=== PATIENT | female | born 1950 | race Caucasian/White ===

== ENCOUNTER → 2016-11-17 | Outpatient (CLI) | payer OTHER | END | disposition home or self-care (01) | LOC: GMAM 19:25 | PROVIDERS: ATTEND Family Medicine | DX: M06.9 Rheumatoid arthritis, unspecified (principal) ==

== ENCOUNTER → 2017-02-18 | Outpatient (CLI) | payer OTHER | END | disposition home or self-care (01) | LOC: GMAM 12:56 | PROVIDERS: ATTEND Family Medicine | DX: E03.9 Hypothyroidism, unspecified (principal) ==

== ENCOUNTER → 2017-03-23 | Outpatient (CLI) | payer OTHER | END | disposition home or self-care (01) | LOC: GMAM 14:41 | PROVIDERS: ATTEND Family Medicine | DX: D64.9 Anemia, unspecified (principal) ==

== ENCOUNTER → 2017-09-22 | Outpatient (CLI) | payer OTHER | END | disposition home or self-care (01) | LOC: GMAM 10:54 | PROVIDERS: ATTEND Family Medicine | DX: D64.9 Anemia, unspecified (principal); E03.9 Hypothyroidism, unspecified ==

== ENCOUNTER → 2017-10-06 | Outpatient (CLI) | payer OTHER | END | disposition home or self-care (01) | LOC: GMAM 13:02 | PROVIDERS: ATTEND Family Medicine | DX: M06.9 Rheumatoid arthritis, unspecified (principal) ==

== ENCOUNTER → 2018-04-12 | Outpatient (CLI) | payer MEDICARE, OTHER | LOC: GMA 11:26 | DX: M06.9 Rheumatoid arthritis, unspecified (principal); E03.9 Hypothyroidism, unspecified ==

== ENCOUNTER → 2018-08-07 | Outpatient (CLI) | payer OTHER | LOC: LAB.O 08-04 09:28 | PROVIDERS: ATTEND Family Medicine | DX: E78.2 Mixed hyperlipidemia (principal); Z79.899 Other long term (current) drug therapy ==

== ENCOUNTER → 2018-10-24 | Outpatient (CLI) | payer OTHER | LOC: GMAM 11:23 | PROVIDERS: ATTEND Family Medicine | DX: E03.9 Hypothyroidism, unspecified (principal) ==

== ENCOUNTER → 2019-02-01 | Outpatient (CLI) | payer OTHER | LOC: GMAM 10:55 | PROVIDERS: ATTEND Family Medicine | DX: M81.8 Other osteoporosis without current pathological fracture (principal); I10 Essential (primary) hypertension; M06.9 Rheumatoid arthritis, unspecified ==

== ENCOUNTER → 2019-04-17 | Outpatient (CLI) | payer OTHER | LOC: LAB.O 12:51 | PROVIDERS: ATTEND Family Medicine | DX: R19.7 Diarrhea, unspecified (principal) ==

== ENCOUNTER → 2019-06-12 | Outpatient (CLI) | payer OTHER | LOC: GMAM 11:33 | PROVIDERS: ATTEND Family Medicine | DX: M05.89 Other rheumatoid arthritis with rheumatoid factor of multiple sites (principal); E03.9 Hypothyroidism, unspecified; D64.9 Anemia, unspecified; E78.2 Mixed hyperlipidemia; Z79.899 Other long term (current) drug therapy ==

== ENCOUNTER → 2019-09-05 | Outpatient (CLI) | payer OTHER | LOC: LAB.O 11:59 | PROVIDERS: ATTEND Internal Medicine Rheumatology | DX: E55.9 Vitamin D deficiency, unspecified (principal); Z79.899 Other long term (current) drug therapy ==

== ENCOUNTER → 2020-02-19 | Outpatient (CLI) | payer OTHER | LOC: GMAM 11:50 | PROVIDERS: ATTEND Family Medicine | DX: E03.9 Hypothyroidism, unspecified (principal) ==

== ENCOUNTER → 2020-10-14 | Outpatient (CLI) | payer MEDICARE, OTHER | LOC: GMAM 14:42 | PROVIDERS: ATTEND Family Medicine | DX: I10 Essential (primary) hypertension (principal); Z79.899 Other long term (current) drug therapy; E03.9 Hypothyroidism, unspecified; E78.2 Mixed hyperlipidemia; D64.9 Anemia, unspecified; M06.9 Rheumatoid arthritis, unspecified; D52.9 Folate deficiency anemia, unspecified ==